=== PATIENT | female | born 1995 | race Caucasian/White ===

== ENCOUNTER 2018-11-27 13:13 | Emergency (ER) | payer OTHER ==
[~2018-11-27] VITALS: Ht 144.8 cm; Wt 49.9 kg
[2018-11-27 13:17] VITALS: BP_SYST 125
[2018-11-27] MEDS ORDERED: KETOROLAC TROMETHAMINE 60 MG/2 ML VIAL IM ONE (13:45)
[2018-11-27 15:42] VITALS: BP_SYST 106
== END 2018-11-27 15:42 | disposition home or self-care (01) ==
LOC: SED 13:13
DX: S16.1XXA Strain of muscle, fascia and tendon at neck level, initial encounter (principal); S39.012A Strain of muscle, fascia and tendon of lower back, initial encounter; S70.01XA Contusion of right hip, initial encounter; R03.0 Elevated blood-pressure reading, without diagnosis of hypertension; V43.52XA Car driver injured in collision with other type car in traffic accident, initial encounter; Y93.89 Activity, other specified; Y92.410 Unspecified street and highway as the place of occurrence of the external cause; Y99.8 Other external cause status
CPT/HCPCS: 72100; 72192; 81025; 96372; 99284; J1885